=== PATIENT | female | born 1955 | race Caucasian/White ===

== ENCOUNTER → 2019-03-18 | Outpatient (CLI) | payer BC ==
--- NOTE | 2019-03-18 11:36 | RADIOLOGY IMAGING REPORT ---
[place]AC[place] [facility] [place] NAME: Lisa Ayala : 1955 MR: [id number] V: [id number] EXAM DATE: ORDERING PHYSICIAN: BREE KILPATRICK TECHNOLOGIST: Location: [facility] [place] Patient: Lisa Ayala : 1955 Visit/Account:[id number] Date of Sevice: 03/18/2019 DEXA Scan Clinical history: Asymptomatic postmenopausal state. Comparison: None available. LUMBAR SPINE: The bone mineral density (BMD) measured from L1-L4 correlates with a Z-score 2.9 and a T-score of 1.8 which is Normal as defined by the World Health Organization. The corresponding risk of fracture in the lumbar spine is Not increased compared with a young adult reference population. HIP: Bone mineral density (BMD) measured in the Left total hip region correlates with a Z-score 1.0 and a T-score of 0.1 which is Normal as defined by the World Health Organization. The corresponding risk o f fracture in the hip is Not increased compared with a young adult reference population. T score le ft femoral neck -0.2 Bone mineral density (BMD) measured in the Femoral Neck region measures 1.015 g/cm2. Impression: 1. Lumbar spine: Normal. 2. Left Hip: Normal. 3. Femoral Neck: Bone Mineral Density is 1.015 g/cm2 The next DEXA scan of this patient should include the following sites: L1-L4 and the left hip. FRAX? WHO Fracture Risk Assessment Tool link: <http://www.shef.ac.uk/FRAX/tool.jsp?[email or web address]> PLEASE NOTE: 1) The World Health Organization defines low BMD as follows: T-score Normal > -1 Osteopenia < -1 and > -2.5 Osteoporosis < -2.5 without fractures Established osteoporosis < -2.5 with fractures 2) In general, you may wish to consider: Diagnosis Treatment Follow-up DEXA Normal BMD Prevention 2-3 years Osteopenia Prevention/therapy 1-2 years Osteoporosis Therapy Yearly 3) Fracture risk estimated from the T-score is more accurate for vertebral fractures (often spontane ous) than for hip fractures. Report Dictated By: Faiza Ty MD at 03/18/2019 11:27 AM Report E-Signed By: Faiza Ty MD at 03/18/2019 11:27 AM WSN:[email or web address]
== END ==
LOC: RAD 07:17
PROVIDERS: ATTEND Nurse Practitioner Psychiatric/Mental Health
DX: Z78.0 Asymptomatic menopausal state (principal)
CPT/HCPCS: 77080

== ENCOUNTER → 2019-03-20 | Outpatient (CLI) | payer BC ==
[2019-03-20 07:28] LABS: PLATELET COUNT, AUTOMATED 193 K/uL (150-450)
[2019-03-20 08:58] LABS: LDL CHOLESTEROL 117 mg/dl
== END ==
LOC: LAB 07:11
PROVIDERS: ATTEND Nurse Practitioner Psychiatric/Mental Health
DX: E78.5 Hyperlipidemia, unspecified (principal); E55.9 Vitamin D deficiency, unspecified
CPT/HCPCS: 36415; 82040; 82247; 82306; 82310; 82374; 82435; 82465; 82565; 82607; 82947; 83036; 83540; 83718; 84075; 84132; 84155; 84295; 84443; 84450; 84460; 84478; 84520; 85025